=== PATIENT | female | born 1975 | race Caucasian/White ===

== ENCOUNTER 2018-10-16 09:22 | Emergency (ER) | payer BC ==
--- NOTE | 2018-10-16 10:43 | EDM.PDOC ---
ED HPI GENERAL MEDICAL PROBLEM - General Chief Complaint: ENT Problem Stated Complaint: NECK SWOLLEN EAR PAIN Time Seen by Provider: 10/16/18 10:33 - History of Present Illness INITIAL COMMENTS - FREE TEXT/NARRATIVE: 43-year-old female presents to the emergency room with right-sided throat and ear pain and swelling below her jaw This has developed over the last 48 hours. It is not associated with fevers or chills she has a mild sore throat most significant discomfort is in her right ear. Denies acute dental problems. She denies any recent illnesses. 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 Throat Pain Score (Numeric/FACES): 5 - Related Data Allergies Allergy/AdvReac Type Severity Reaction Status Date / Time No Known Allergies Allergy Verified 12/01/13 10:41 Home Meds: Home Meds ALPRAZolam [Xanax] 0.5 mg PO Q8H PRN 12/01/13 [History] Acetaminophen/Caffeine [Excedrin Tension Headache] 2 tab PO DAILY 12/01/13 [ History] Citalopram Hydrobromide [Celexa] 20 mg PO DAILY 12/01/13 [History] Acetaminophen/HYDROcodone [[place] 325-5 MG] 1 - 2 tab PO Q6H PRN #10 tablet 10/16 [Rx] Amoxicillin/Potassium Clav [Augmentin 875-125 Tablet] 1 each PO Q12H #20 tablet 10/16/18 [Rx] Social & Family History - Tobacco Use Smoking Status *Q: Never Smoker - Caffeine Use Caffeine Use: Reports: Tea - Recreational Drug Use Recreational Drug Use: No ED ROS ENT - Review of Systems Review Of Systems: See Below Constitutional: Reports: No Symptoms HEENT: Reports: Ear Pain, Other (Neck pain) Respiratory: Reports: No Symptoms Cardiovascular: Reports: No Symptoms Endocrine: Reports: No Symptoms GI/Abdominal: Reports: No Symptoms, Mucous in Stool Musculoskeletal: Reports: No Symptoms Skin: Reports: No Symptoms Neurological: Reports: No Symptoms ED EXAM, ENT - Physical Exam Exam: See Below Exam Limited By: No Limitations General Appearance: Alert, No Apparent Distress Eye Exam: Bilateral Eye: Normal Inspection Ears: Normal External Exam, Normal Canal, Hearing Grossly Normal, Normal TMs Nose: Normal Inspection, Normal Mucousa, No Blood Mouth/Throat: Normal Inspection, Normal Gums, Normal Lips, Other (No asymmetry of the tonsils or in the posterior pharynx ominous significance erythema single patch of exudate noted on the right posterior pharynx no obvious dental pain or discomfort. The parotid gland is entirely normal nonswollen nonpainful. Under her right jaw she has what feels like a swollen lymph node or possibly a submandibular gland on the right left side is normal. ) Head: Atraumatic, Normocephalic Neck: Normal Inspection, Lymphadenopathy (R), Other (As discussed above). No: Lymphadenopathy (L) Respiratory/Chest: No Respiratory Distress, Lungs Clear, Normal Breath Sounds Cardiovascular: Regular Rate, Rhythm, No Edema, No Murmur Course - Vital Signs Last Recorded V/S: Last Vital Signs Temp 36.6 C 10/16/18 09:27 Pulse 91 10/16/18 09:27 Resp 18 10/16/18 09:27 BP 133/91 H 10/16/18 09:27 Pulse Ox 99 10/16/18 09:27 - Orders/Labs/Meds Orders: Active Orders 24 hr Category Date Time Status CULTURE STREP A CONFIRMATION [] Stat Lab 10/16/18 10:55 Results STREP SCRN A RAPID W CULT CONF [RM] Stat Lab 10/16/18 10:55 Results Labs: Laboratory Tests 10/16/18 Range/Units 10:58 Monoscreen Negative (NEGATIVE) Meds: Medications Discontinued Medications Generic Name Dose Route Start Last Admin Trade Name Freq PRN Reason Stop Dose Admin Hydrocodone Bitart/Acetaminophen 1 tab 10/16/18 12:15 10/16/18 12:24 [place] 325-5 Mg PO 10/16/18 12:16 1 tab ONETIME ONE Administration - Re-Assessments/Exams Free Text/Narrative Re-Assessment/Exam: 10/16/18 12:55 No asymmetry on exam no evidence of peritonsillar abscess or other abscess this could be a reactive lymph node versus inflamed submandibular gland. We'll start on Augmentin. Did discuss further laboratory evaluation and CT scanning and the patient agrees on holding off for now. If this condition does not improve promptly CT evaluation may be warranted as well as ENT consultation. Departure - Departure Time of Disposition: 12:56 Disposition: Home, Self-Care 01 Clinical Impression: Reactive cervical lymphadenopathy - Discharge Information Prescriptions: Acetaminophen/HYDROcodone [[place] 325-5 MG] 1 - 2 tab PO Q6H PRN #10 tablet PRN Reason: Pain Amoxicillin/Potassium Clav [Augmentin 875-125 Tablet] 1 each PO Q12H #20 tablet Referrals: Cynthia Dean MASTER CARPENTER [Primary Care Provider] - Forms: ED Department Discharge Additional Instructions: Return to emergency room if any questions problems worsening symptoms. Return with any increased swelling or difficulty breathing. Follow-up with your regular provider tomorrow or Tuesday for recheck. Take the medications as directed. - My Orders Last 24 Hours: My Active Orders 10/16/18 10:55 CULTURE STREP A CONFIRMATION [RM] Stat STREP SCRN A RAPID W CULT CONF [] Stat - Assessment/Plan Last 24 Hours: My Active Orders 10/16/18 10:55 CULTURE STREP A CONFIRMATION [RM] Stat STREP SCRN A RAPID W CULT CONF [] Stat
[2018-10-16] MEDS ORDERED: Acetaminophen/HYDROcodone 325-5 MG Tab PO ONE (12:15)
== END 2018-10-16 13:13 | disposition home or self-care (01) ==
LOC: JD.ED 09:22
DX: R59.0 Localized enlarged lymph nodes (principal); Z79.899 Other long term (current) drug therapy
CPT/HCPCS: 36415; 86308; 87081; 87430; 99283; A9270

== ENCOUNTER 2018-10-20 14:22 | Emergency (ER) | payer BC ==
--- NOTE | 2018-10-20 15:01 | EDM.PDOC ---
ED HPI GENERAL MEDICAL PROBLEM - General Chief Complaint: Neck Problem Stated Complaint: SWELLING IN NECK Time Seen by Provider: 10/20/18 14:53 Source of Information: Reports: Patient History Limitations: Reports: No Limitations - History of Present Illness INITIAL COMMENTS - FREE TEXT/NARRATIVE: 43-year-old female presents the ED with increased right hemifacial swelling and pain. Patient states anus much worse under her right mandible in the distribution of the submandibular gland. She is she has developed increasing severe trismus over the last 3 days unable to open her mouth more than 2 cm in the midline. Difficult to swallow. She's been living on clear fluids. She was seen in the ED on Tuesday, October 16 and was started on Augmentin 875 mg twice a day for suspect infection. There was no definitive proof that it was coming from a broken off right lower more. She had fake eyelashes placed last , October 12 with redness of her eyes but no significant purulent discharge. Currently pain is felt anterior to her right ear into her right ear and radiates down the right side of her neck. She feels pressure in her throat but has no difficulty swallowing or breathing at this time. She thinks she has a fever but she is not sure. No severe chills. Onset: Gradual Onset Date: 10/15/18 (Resume swelling since Tuesday last week. October 15) Duration: Day(s):, Constant, Getting Worse Location: Reports: Face (Right hemifacial pain and swelling particularly over the TMJ joint anterior to her right ear right ear pain right hemifacial pain right mandibular pain right submandibular pain and now swelling and pain in the right victor hugo-neck in zone 2.) Quality: Reports: Ache, Burning, Pressure Severity: Moderate Improves with: Reports: None Worsens with: Reports: None (8 out of 10.) Context: Reports: Other (Has been on Augmentin 875 mg twice a day for the last 4 -1/2 days with no improvement in symptoms). Denies: Activity, Exercise, Lifting , Sick Contact, Trauma Associated Symptoms: Reports: Fever/Chills, Loss of Appetite (Can't get any solids in due to trismus. She's been living on fluids and sucking). 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, Other (see below) Right Jaw Pain Score (Numeric/FACES): 4 - Related Data Allergies Allergy/AdvReac Type Severity Reaction Status Date / Time No Known Allergies Allergy Verified 10/20/18 14:40 Home Meds: Home Meds ALPRAZolam [Xanax] 0.5 mg PO Q8H PRN 12/01/13 [History] Acetaminophen/Caffeine [Excedrin Tension Headache] 2 tab PO DAILY 12/01/13 [ History] Citalopram Hydrobromide [Celexa] 20 mg PO DAILY 12/01/13 [History] Acetaminophen/HYDROcodone [[place] 325-5 MG] 1 - 2 tab PO Q6H PRN #10 tablet 10/16 [Rx] Amoxicillin/Potassium Clav [Augmentin 875-125 Tablet] 1 each PO Q12H #20 tablet 10/16/18 [Rx] Past Medical History - Past Health History Medical/Surgical History: Denies Medical/Surgical History Psychiatric History: Reports: Anxiety, Depression - Infectious Disease History Infectious Disease History: Reports: Chicken Pox Social & Family History - Tobacco Use Smoking Status *Q: Never Smoker - Caffeine Use Caffeine Use: Reports: Soda, Tea - Recreational Drug Use Recreational Drug Use: No - Living Situation & Occupation Living situation: Reports: Occupation: Employed ED ROS ENT - Review of Systems Review Of Systems: See Below (Self-employed) Constitutional: Reports: Fever, Malaise, Weakness, Fatigue, Decreased Appetite ( Unable to eat due to trismus.). Denies: Chills HEENT: Reports: Ear Pain (Severe right ear pain worse with swallowing. HEENT anterior to the right ear.) Respiratory: Reports: No Symptoms Cardiovascular: Reports: No Symptoms Endocrine: Reports: No Symptoms GI/Abdominal: Reports: No Symptoms : Reports: No Symptoms Musculoskeletal: Reports: No Symptoms Skin: Reports: Other (Erythema and swelling of her right victor hugo-face and right anterior lateral neck) Neurological: Reports: No Symptoms Psychiatric: Reports: No Symptoms Hematologic/Lymphatic: Reports: No Symptoms ED EXAM, ENT - Physical Exam Exam: See Below Exam Limited By: No Limitations General Appearance: Alert, WD/WN, Moderate Distress, Other (Has marked trismus with only ability to open her mouth by 2 cm.) Eye Exam: Bilateral Eye: Normal Inspection (Sites of recent Rudolph catheter/ placement reveals no signs of inflammation or infection.) Ears: Normal External Exam, Normal TMs, Other (She has marked tenderness over the right temporomandibular joint and minimal swelling of the anterior preauricular lymph node.). No: Auricular Erythema, Mastoid Swelling, Mastoid Tenderness Mouth/Throat: Other (Due to severe trismus not able to see the back of her throat well at all. I could not visualize her teeth at all either. There appears to be some thickening of the buccal mucosa right inner cheek. The for the mouth appears to be normal other than the fact that she is tongue tied. Can see no evidence of blockage of the submandibular ducts. She can open wide enough for me to palpate the floor of her mouth with a gloved finger. She states she noticed bad teeth on the right lower molars but they've never given her problems.) Head: Atraumatic, Normocephalic, Facial Swelling (Diffuse right victor hugo-facial swelling and erythema starting at the level just above the preauricular lymph node on the right side and extending all the way down her right victor hugo-face over the mandible and three quarters the way down her right anterior lateral neck.), Facial Tenderness (Tender over the right mandible and preauricular TMJ area.). No: Facial Abrasions, Facial Ecchymosis, Facial Lacerations Neck: Lymphadenopathy (L), Lymphadenopathy (R) (Marked swelling of the submandibular gland on the right side), Tender Lateral, Other (Tali spreads down zone 2 into slightly into zone 3 right anterior lateral neck on the right side. No midline shift of the larynx and there is normal laryngeal crepitus.). No: Normal Inspection, Supple, Non-Tender Respiratory/Chest: No Respiratory Distress, Lungs Clear, Normal Breath Sounds, No Accessory Muscle Use, Chest Non-Tender Cardiovascular: Regular Rate, Rhythm (Resting tachycardia at 111. Minute), No Edema, No Gallop, No JVD, No Murmur, No Rub, Tachycardia GI/Abdominal: Normal Bowel Sounds, Soft, Non-Tender, No Organomegaly, No Abnormal Bruit Extremities: Normal Inspection, Normal Range of Motion, Non-Tender, No Pedal Edema Neurological: Alert, Oriented, CN II-XII Intact, Normal Cognition Psychiatric: Normal Mood Skin: Warm, Dry, Intact, Erythema (Erythema of the right victor hugo-face and anterior lateral neck.) Course - Vital Signs Last Recorded V/S: Last Vital Signs Temp 37.2 C 10/20/18 14:36 Pulse 111 H 10/20/18 14:36 Resp 14 10/20/18 14:36 BP 132/98 H 10/20/18 14:36 Pulse Ox 98 10/20/18 14:36 - Orders/Labs/Meds Orders: Active Orders 24 hr Category Date Time Status CULTURE BLOOD [BC] Stat Lab 10/20/18 15:15 Received CULTURE BLOOD [BC] Stat Lab 10/20/18 16:28 Received Dextrose 5%-0.9% NaCl [Dextrose 5%-Normal Saline] 1,000 Med 10/20/18 15:15 Active ml IV ASDIRECTED cefTRIAXone [Rocephin] 2 gm Med 10/20/18 17:15 Active Sodium Chloride 0.9% [Normal Saline] 100 ml IV Q24H Blood Culture x2 Reflex Set [OM.PC] Stat Oth 10/20/18 15:02 Ordered Medication Orders Dextrose/Sodium Chloride (Dextrose 5%-Normal Saline) 1,000 mls @ 500 mls/hr IV ASDIRECTED KIMBER Last Admin: 10/20/18 18:21 Dose: 500 mls/hr Infusion: 10/20/18 17:40 Dose: 500 mls/hr Admin: 10/20/18 15:40 Dose: 500 mls/hr Ceftriaxone Sodium 2 gm/ (Sodium Chloride) 100 mls @ 200 mls/hr IV Q24H KIMBER Last Admin: 10/20/18 17:20 Dose: 200 mls/hr Labs: Laboratory Tests 10/20/18 10/20/18 Range/Units 15:15 15:15 WBC 13.17 H (3.98-10.04) K/mm3 RBC 5.29 H (3.98-5.22) M/mm3 Hgb 15.4 (11.2-15.7) gm/L Hct 46.1 H (34.1-44.9) % MCV 87.1 D (79.4-94.8) fl MCH 29.1 (25.6-32.2) pg MCHC 33.4 (32.2-35.5) g/dl RDW Std Deviation 45.9 (36.4-46.3) fL Plt Count 408 H D (182-369) K/mm3 MPV 9.6 (9.4-12.3) fl Neutrophils % (Manual) 82 H (40-60) % Band Neutrophils % 0 (0-10) % Lymphocytes % (Manual) 12 L (20-40) % Atypical Lymphs % 0 % Monocytes % (Manual) 4 (2-10) % Eosinophils % (Manual) 2 (0.7-5.8) % Basophils % (Manual) 0 L (0.1-1.2) Platelet Estimate Increased RBC Morph Comment Normal Sodium 138 (136-145) mEq/L Potassium 3.9 (3.5-5.1) mEq/L Chloride 100 (98-107) mEq/L Carbon Dioxide 24 (21-32) mEq/L Anion Gap 17.9 H (5-15) BUN 25 H (7-18) mg/dL Creatinine 1.2 H (0.55-1.02) mg/dL Est Cr Clr Drug Dosing 52.20 mL/min Estimated GFR (MDRD) 49 (>60) mL/min BUN/Creatinine Ratio 20.8 H (14-18) Glucose 101 (74-106) mg/dL Calcium 10.5 H (8.5-10.1) mg/dL Total Bilirubin 0.7 (0.2-1.0) mg/dL AST 25 (15-37) U/L ALT 43 (14-59) U/L Alkaline Phosphatase 92 (46-116) U/L C-Reactive Protein 10.0 H* (<1.0) mg/dL Total Protein 9.2 H (6.4-8.2) g/dl Albumin 4.1 (3.4-5.0) g/dl Globulin 5.1 gm/dL Albumin/Globulin Ratio 0.8 L (1-2) Meds: Medications Generic Name Dose Route Start Last Admin Trade Name Freq PRN Reason Stop Dose Admin Dextrose/Sodium Chloride 1,000 mls @ 500 mls/hr 10/20/18 15:15 10/20/18 18:21 Dextrose 5%-Normal Saline IV 500 mls/hr ASDIRECTED KIMBER Administration Ceftriaxone Sodium 2 gm/ 100 mls @ 200 mls/hr 10/20/18 17:15 10/20/18 17:20 Sodium Chloride IV 200 mls/hr Q24H KIMBER Administration Discontinued Medications Generic Name Dose Route Start Last Admin Trade Name Roloq PRN Reason Stop Dose Admin Dexamethasone 10 mg 10/20/18 17:02 10/20/18 17:20 Dexamethasone IVPUSH 10/20/18 17:03 10 mg ONETIME ONE Administration Dexamethasone 10 mg 10/20/18 17:16 10/20/18 17:48 Dexamethasone IVPUSH 10/20/18 17:17 10 mg ONETIME ONE Administration Hydromorphone HCl 1 mg 10/20/18 15:02 10/20/18 15:55 Dilaudid IVPUSH 10/20/18 15:03 1 mg ONETIME ONE Administration Clindamycin Phosphate 900 mg/ 50 mls @ 100 mls/hr 10/20/18 15:05 10/20/18 16: 29 Premix IV 10/20/18 15:34 100 mls/hr ONETIME ONE Administration Iopamidol 100 ml 10/20/18 15:09 10/20/18 15:49 Isovue-300 (61%) IVPUSH 10/20/18 15:10 100 ml ONETIME ONE Administration Ketorolac Tromethamine 30 mg 10/20/18 15:03 10/20/18 15:55 Toradol IVPUSH 10/20/18 15:04 30 mg ONETIME ONE Administration Metoclopramide HCl 7.5 mg 10/20/18 15:03 10/20/18 15:54 Reglan IVPUSH 10/20/18 15:04 7.5 mg ONETIME ONE Administration Sodium Chloride 10 ml 10/20/18 15:09 10/20/18 15:49 Saline Flush FLUSH 10/20/18 15:10 10 ml ONETIME ONE Administration - Radiology Interpretation Free Text/Narrative:: 43-year-old female presents to the ED with gradually worsening right hemifacial swelling and pain which is now spreading down into her neck and submandibular area on the right side over the last 5-6 days. She was seen through the ED on Tuesday and identified to have a developing infection which was thought to be possibly due to recent take eyelash placement. She did had numerous broken off teeth in the lower mandible but aggressive probing did not identify any one that was particularly sore. At present she has erythema of the right victor hugo-face and particular pain on the preauricular area TMJ and right mandible. Marked swelling of the right submandibular gland. Swelling and erythema spreads down two thirds of the way through zone 3 in zone 2 of her right anterior lateral neck. No deviation of the trachea or larynx. No trouble swallowing at this time. Unable to explore the floor of her mouth for the posterior oropharynx very well because she has severe trismus of 2 cm. Most likely infection is from a dental infection. CT of the neck will be done with IV contrast. In spite of being on Augmentin 7 875 mg/125 mg for last follow-up for a half days for infection is spreading. This suggests possible anaerobic open organism. Will give clindamycin 900 mg IV. Also given Dilaudid 1 mg with Reglan 7.5 mg and Toradol 30 mg IV for pain relief. Will include blood cultures 2 and a CRP - Re-Assessments/Exams Free Text/Narrative Re-Assessment/Exam: 10/20/18 : 16;00 :Labs reveal an elevated white count at 13.17 with a left shift of 82% neutrophils and no band cells reported hemoglobin is 15.4 with a hematocrit of 46.1. MCV is normal platelet count slightly elevated at 408,000. Sodium 138 with potassium of 3.9. Chloride 100 with a bicarbonate of 24. And a gap is 17.9. BUN is 25 with a creatinine 1.2 indicating mild bowing depletion. Estimated GFR is 49. BUN/creatinine ratio is 20.8. Glucose 101. Calcium slightly elevated at 10.5. Liver function is normal. C-reactive protein is elevated at 10.0. Total protein is 9.2 with an albumin fraction of 4.1. 10/20/18 16:47 CT of the soft tissues of the neck with IV contrast has been performed. Swelling and low density is noted within the pterygoid muscles on the right side directly medial to the mandible. Low density center with slight enhancing periphery is seen in this area measuring about 1.5 cm which could represent an early abscess. Additional soft tissue swelling is noted at the angle of the mandible extending more superficially without additional abscess being seen. The parapharyngeal soft tissues are normal parotid and submandibular salivary glands are normal. Slightly prominent lymph nodes are seen within the lower right neck presumably reactive from inflammatory process. Several dental caries are noted in the right lower molars. Cervical spine appears within normal limits. Discussed the findings with the patient and her . I will speak with ear nose and throat surgeon decision science analyst at [facility] and see if they believe this abscess is large enough to require surgical drainage. 10/20/18 17:15: Spoke with Dr. Lewis--ear nose throat surgeon decision science analyst at [facility] and he has accepted care of the patient although has concerns about whether or not she has a dental abscess that would need to be drained by way of retraction of the tooth or teeth. He states he does not do this procedure. He will see her with a view to draining the abscess. I then spoke with --in the ED had [facility] and he has accepted care through the ED and they will start her out when she gets there. Departure - Departure Time of Disposition: 17:55 Disposition: DC/Tfer to Acute Hospital 02 Condition: Fair Clinical Impression: Abscess of submental region, Dental caries, Trismus - Discharge Information *PRESCRIPTION DRUG MONITORING PROGRAM REVIEWED*: Not Applicable *COPY OF PRESCRIPTION DRUG MONITORING REPORT IN PATIENT KIRIT: Not Applicable Referrals: Cynthia Dean PIPE MANUFACTURE SUPERVISOR [Primary Care Provider] - Forms: ED Department Discharge Additional Instructions: Patient sent to [facility] ER with accepting physician to be Dr Quiles. I spoke with --ENT physician who believes that the patient likely will need drainage of the submandibular abscess since she has such marked trismus. He has aspirin to give her a total of 20 mg of dexamethasone IV and 2 g of Rocephin after finishing the 900 mg of clindamycin IV. He will be transferred to [facility] per ambulance. She states her pain is well controlled. CT--soft tissue of the neck with IV contrast has been sent by PACs to [facility]. - My Orders Last 24 Hours: My Active Orders 10/20/18 15:02 Blood Culture x2 Reflex Set [OM.PC] Stat 10/20/18 15:15 CULTURE BLOOD [BC] Stat Dextrose 5%-0.9% NaCl [Dextrose 5%-Normal Saline] 1,000 ml IV ASDIRECTED 10/20/18 16:28 CULTURE BLOOD [BC] Stat 10/20/18 17:15 cefTRIAXone [Rocephin] 2 gm Sodium Chloride 0.9% [Normal Saline] 100 ml IV Q24H - Assessment/Plan Last 24 Hours: My Active Orders 10/20/18 15:02 Blood Culture x2 Reflex Set [OM.PC] Stat 10/20/18 15:15 CULTURE BLOOD [BC] Stat Dextrose 5%-0.9% NaCl [Dextrose 5%-Normal Saline] 1,000 ml IV ASDIRECTED 10/20/18 16:28 CULTURE BLOOD [BC] Stat 10/20/18 17:15 cefTRIAXone [Rocephin] 2 gm Sodium Chloride 0.9% [Normal Saline] 100 ml IV Q24H
[2018-10-20] MEDS ORDERED: HYDROmorphone 1 MG/ML Syringe IVPUSH ONE (15:02)
[2018-10-20] MEDS ORDERED: Ketorolac 30 MG/ML SDV IVPUSH ONE (15:03)
[2018-10-20] MEDS ORDERED: Metoclopramide 10 MG/2 ML SDV IVPUSH ONE (15:03)
[2018-10-20] MEDS ORDERED: Clindamycin Phosphate in D5W 900 MG in Premix Bag 1 BAG IV ONE ×2 (15:05)
[2018-10-20] MEDS ORDERED: Sodium Chloride 0.9% 10 ML Syringe FLUSH ONE (15:09)
[2018-10-20] MEDS ORDERED: Iopamidol 612 MG/ML 100 ML Bottle IVPUSH ONE (15:09)
[2018-10-20] MEDS: Dextrose 5%-0.9% NaCl 1,000 ML IV SCH ×2 (15:40→18:21)
--- NOTE | 2018-10-20 16:41 | CT ---
CT neck Technique: Multiple axial sections were obtained from above the external auditory canals inferiorly to the lung apices. Intravenous contrast was utilized. Comparison: No previous CT neck study is available. Findings: Swelling and low density is noted within the pterygoid muscles on the right side directly medial to the mandible. Low density center with slight enhancing periphery is seen in this area measuring about 1.5 which could represent early abscess. Additional soft tissue swelling is noted at the angle of the mandible extending more superficially without additional abscess being seen. Parapharyngeal soft tissue is normal. Parotid and submandibular salivary glands are normal. Slightly prominent lymph nodes are seen within the lower right neck presumably reactive from the inflammatory process. Several possible dental caries are noted. Cervical spine appears within normal limits. Impression: 1. Soft tissue swelling and low density within the pterygoid muscles to the medial side of the right mandible. Early abscess measuring 1.5 cm is possible. Additional soft tissue swelling extends around the angle of the right mandible and more superficially. Slightly prominent lymph nodes are noted within the right lower neck presumably reactive from the soft tissue inflammatory process. 2. Possible dental caries. 3. No additional abnormality is appreciated. Diagnostic code #5
[2018-10-20] MEDS ORDERED: Dexamethasone 4 MG/ML SDV IVPUSH ONE (17:02)
[2018-10-20] MEDS ORDERED: cefTRIAXone 2 GM in Sodium Chloride 0.9% 100 ML IV SCH (17:15)
[2018-10-20] MEDS: Dexamethasone 10 MG/ML SDV IVPUSH ONE ×2 (17:28→17:48)
== END 2018-10-20 18:20 ==
LOC: JD.ED 14:22
DX: L02.11 Cutaneous abscess of neck (principal); K02.9 Dental caries, unspecified; R25.2 Cramp and spasm; F41.9 Anxiety disorder, unspecified; F32.9 Major depressive disorder, single episode, unspecified; Z79.899 Other long term (current) drug therapy
CPT/HCPCS: 36415; 70491; 80053; 85007; 85027; 86140; 87040; 96361; 96365; 96367; 96375; 99285; J0696; J1100; J1170; J1885; J2765; J3490; J7030; J7042; Q9967